=== PATIENT | male | born 1955 | race Two or more races ===

== ENCOUNTER 2016-07-08 06:09 | Observation (INO) | payer MEDICAID ==
[2016-07-08] MEDS ORDERED: BACITRACIN IRRIGATION/NS 50,000 UNITS/1,000 ML BTL IRR ONE (06:10)
[2016-07-08] MEDS ORDERED: NS 1,000 ML IV ONE (06:10)
[2016-07-08] MEDS ORDERED: DIAZEPAM 5 MG TAB PO ONE (06:10)
[2016-07-08] MEDS ORDERED: ceFAZolin 2 GM/DEXTROSE 100 ML IV ONE (06:10)
[2016-07-08] MEDS ORDERED: diphenhydrAMINE 25 MG CAP PO ONE ×2 (06:10→11:50)
--- NOTE | 2016-07-08 06:35 | CPEKG ---
Heart Rate: 39 RR Interval: 1538 P-R Interval: 304 QRSD Interval: 94 QT Interval: 620 QTC Interval: 500 P [place]: 50 QRS [place]: -14 T Wave [place]: 43 EKG Severity - ABNORMAL ECG - EKG Impression: SINUS BRADYCARDIA EKG Impression: FIRST DEGREE AV BLOCK EKG Impression: PROBABLE LEFT ATRIAL ABNORMALITY EKG Impression: BORDERLINE PROLONGED QT INTERVAL Electronically Signed By: Bartolo Champion 08-Jul-2016 14:30:59
[2016-07-08 06:58] LABS: % IMMATURE GRANULYOCYTES 0.2 % (0.0-1.1); ABSOLUTE IMMATURE GRANULOCYTES 0.02 10^3/uL (0.00-0.10); ADD DIFF? NO; ADD MORPH? NO; ADD SCAN? NO; ATYPICAL LYMPHOCYTE FLAG 10 (0-99); FRAGMENT RBC FLAG 0 (0-99); HEMATOCRIT 46.8 % (40.0-51.0); HEMOGLOBIN 15.8 g/dL (13.7-17.5); LEFT SHIFT FLG 0 (0-99); LIPEMIA HEMOLYSIS FLAG 90 (0-99); MEAN CELL HEMOGLOBIN CONCENTR. 33.8 g/dL (32.4-36.7); MEAN PLATELET VOLUME 11.3 fL (8.7-11.7); PLATELET CLUMPS FLAG 0 (0-99); PLATELET COUNT 237 10^3/uL (150-400); RED BLOOD CELL COUNT 5.44 10^6/uL (4.40-6.38); RED CELL DISTRIBUTION WIDTH 13.6 % (11.5-15.2)
[2016-07-08 07:07] LABS: INR 1.09 (0.83-1.16)
[2016-07-08 07:25] LABS: ANION GAP 15 mEq/L (8-16); CALCIUM 9.6 mg/dL (8.5-10.4); CARBON DIOXIDE 23 mEq/l (22-31); CHLORIDE 105 mEq/L (97-110); GLOMERULAR FILTRATION RATE > 60; GLUCOSE 111 mg/dL (70-100); POTASSIUM 3.5 mEq/L (3.5-5.2); SODIUM 143 mEq/L (134-144)
[2016-07-08] MEDS ORDERED: fentaNYL 100 MCG/2 ML INJ ONE ×2 (07:25→07:45)
[2016-07-08] MEDS ORDERED: LIDOCAINE 1% 30 ML SDV ONE (07:25)
[2016-07-08] MEDS ORDERED: MIDAZOLAM 2 MG/2 ML VIAL ONE ×3 (07:26→07:45)
[2016-07-08] MEDS ORDERED: LIDO/EPI 1% **for epidural** 30 ML SDV ONE (07:26)
[2016-07-08] MEDS ORDERED: BUPIVACAINE 0.5% 30 ML SDV ONE (07:26)
[2016-07-08] MEDS ORDERED: IOPAMIDOL (ISOVUE 370) 100 ML BTL IV ONE (07:26)
[2016-07-08] MEDS ORDERED: CLOPIDOGREL BISULFATE 75 MG TAB PO ONE (07:30)
[2016-07-08] MEDS ORDERED: LISINOPRIL 40 MG TAB PO ONE (07:30)
[2016-07-08] MEDS ORDERED: hydrALAZINE 20 MG/ML VIAL ONE (07:41)
--- NOTE | 2016-07-08 09:07 | CPEKG ---
Heart Rate: 70 RR Interval: 857 P-R Interval: 204 QRSD Interval: 154 QT Interval: 512 QTC Interval: 553 P [place]: 61 QRS [place]: -75 T Wave [place]: 91 EKG Severity - ABNORMAL ECG - EKG Impression: SINUS RHYTHM EKG Impression: PROBABLE LEFT ATRIAL ABNORMALITY EKG Impression: LBBB - NEW IN COMPARISON TO PRIOR ECG EKG Impression: LVH WITH SECONDARY REPOLARIZATION ABNORMALITY EKG Impression: INFERIOR INFARCT, ACUTE EKG Impression: ANTEROLATERAL INFARCT, RECENT Electronically Signed By: Bartolo Champion 08-Jul-2016 14:31:22
--- NOTE | 2016-07-08 09:36 | EPPROC ---
Electrophysiology Procedure Note: PROCEDURE PERFORMED: * Implantation of an A/V Pacemaker * Fluoroscopy INDICATION: This is a 60 yr old male with symptomatic heart block. In view of this it was decided to implant a dual chamber pacemaker PROCEDURE NOTE: Patient presented to the cardiac catheterization laboratory in a fasting, post absorptive state. Cardiac laborer beam house nurse administered moderate sedation. The left infraclavicular area was prepped and draped in the usual sterile fashion. Lidocaine plus bupivacaine was used for local anesthesia. Left subclavian venography was performed by injection of iodinated contrast into the left antecubital vein. This was done to assure patency of the vein and also to assess for any anatomical aberrations. Using a combination of blunt and sharp dissection and electrocautery, the dissection was carried down to the prepectoral fascia. All bleeding was controlled with electrocautery. Fluoroscopy was utilized during the entire procedure for venous access and placement of the leads. Using the usual technique, left celphalic vein was accessed and a glidewire was placed. Through this initially a 9F and later a 7F sheath was passed. Placement of the guidewires into the venous system was confirmed by low- pressure blood return and also by visualizing the guidewires advancing into the inferior vena cava. A purse string suture was applied around the guidewires. An active fixation ventricular lead was advanced into the right ventricular apex and screwed in place. An active fixation atrial lead was advanced into the right atrial appendage and screwed in place. The peel away sheaths were removed. Pacing thresholds, sensing parameters and lead impedances were measured. There was no diaphragmatic stimulation at maximum output. The leads were sutured to the prepectoral fascia with 3 nonabsorbable sutures each. The pocket was created and it was flushed using antibiotic solution. It was inspected for any bleeding. The leads were attached to the pacemaker securely. The pacemaker was inserted into the pocket and secured in place with a nonabsorbable suture. Fluoroscopy was performed in [place] and [place] planes to verify right-sided placement of the leads. Also fluoroscopy of the pacemaker pocket was performed. The pacemaker pocket was closed in 3 layers with absorbable vicryl sutures. Steristrips were placed. Appropriate dressing was applied. The patient left the cardiac catheterization laboratory in stable condition. Serial Numbers: * Device: St Will Assurity SN [id number] * Atrial Lead: [facility] Will Tendril SN [id number] * Ventricular Lead: St Will Tendril SN [id number] Stimulation Thresholds & Impedance Measurements: * Atrial Lead 1.5mV, 1.7@0.5ms, 449Ohms * Ventricular Lead 7.9mV, 0.9@0.5ms, 576Ohms Aníbal Pacing Parameters * Pacing mode: DDD * Lower rate: 60 * Upper tracking rate: 120 * Upper sensor rate: 120
[2016-07-08] MEDS ORDERED: NON-FORMULARY NEW DRUG (Diclofenac Sodium [Voltaren Gel (*)] 1 APP) TP PRN (11:38)
[2016-07-08] MEDS ORDERED: ALBUTEROL 60 PUFFS/8 GM MDI IH PRN (11:38)
[2016-07-08] MEDS ORDERED: HYDROCODONE/APAP 5/325 TAB PO PRN (11:40)
[2016-07-08] MEDS ORDERED: NITROGLYCERIN 0.4 MG BTL SL PRN (17:10)
[2016-07-08] MEDS: NITROGLYCERIN 0.4 MG BTL SL SCH ×2 (19:36→19:54)
[2016-07-08] MEDS ORDERED: NON-FORMULARY NEW DRUG (Ranitidine Hcl [Ranitidine Hcl] 150 MG) PO SCH (21:00)
[2016-07-08] MEDS ORDERED: LISINOPRIL 40 MG TAB PO SCH (21:00)
[2016-07-08] MEDS ORDERED: NON-FORMULARY NEW DRUG (Quinapril Hcl [Accupril 40 Mg] 40 MG) PO SCH (21:00)
[2016-07-08] MEDS: FAMOTIDINE 20 MG TAB PO SCH (21:02)
[2016-07-09 04:40] LABS: % IMMATURE GRANULYOCYTES 0.3 % (0.0-1.1); ABSOLUTE IMMATURE GRANULOCYTES 0.02 10^3/uL (0.00-0.10); ADD DIFF? NO; ADD MORPH? NO; ADD SCAN? NO; ATYPICAL LYMPHOCYTE FLAG 0 (0-99); FRAGMENT RBC FLAG 20 (0-99); HEMATOCRIT 40.8 % (40.0-51.0); HEMOGLOBIN 13.8 g/dL (13.7-17.5); LEFT SHIFT FLG 0 (0-99); LIPEMIA HEMOLYSIS FLAG 90 (0-99); MEAN CELL HEMOGLOBIN 29.4 pg (27.9-34.1); MEAN CELL HEMOGLOBIN CONCENTR. 33.8 g/dL (32.4-36.7); PLATELET CLUMPS FLAG 10 (0-99); PLATELET COUNT 217 10^3/uL (150-400); RED BLOOD CELL COUNT 4.69 10^6/uL (4.40-6.38); RED CELL DISTRIBUTION WIDTH 13.7 % (11.5-15.2)
[2016-07-09 04:49] LABS: ANION GAP 9 mEq/L (8-16); CALCIUM 8.8 mg/dL (8.5-10.4); CARBON DIOXIDE 25 mEq/l (22-31); CHLORIDE 107 mEq/L (97-110); CREATININE 1.1 mg/dL (0.7-1.3); GLOMERULAR FILTRATION RATE > 60; GLUCOSE 123 mg/dL (70-100); POTASSIUM 3.8 mEq/L (3.5-5.2); SODIUM 141 mEq/L (134-144)
[2016-07-09] MEDS: FAMOTIDINE 20 MG TAB PO SCH (07:47)
[2016-07-09] MEDS ORDERED: NON-FORMULARY NEW DRUG (Atorvastatin Calcium [Lipitor 80 Mg] 80 MG) PO SCH (09:00)
[2016-07-09] MEDS ORDERED: ATORVASTATIN CALCIUM 40 MG TAB PO SCH (09:00)
[2016-07-09] MEDS ORDERED: ASPIRIN 325 MG PO SCH (09:00)
[2016-07-09] MEDS ORDERED: CLOPIDOGREL BISULFATE 75 MG TAB PO SCH (09:00)
[2016-07-09] MEDS ORDERED: HYDROCHLOROTHIAZIDE 12.5 MG CAP PO SCH (09:00)
[2016-07-09] MEDS ORDERED: ASPIRIN EC 325 MG TAB PO SCH (09:00)
[2016-07-09 09:16] VITALS: BP 178/97; PULSE 67; RESP 18; TEMP 97.7; O2SAT 93
--- NOTE | 2016-07-09 10:34 | GDS ---
[f rep st] DISCHARGE SUMMARY DISCHARGE DIAGNOSES: 1. Complete heart block status post dual-chamber [employer] Will pacemaker. 2. History of anterior ST elevated myocardial infarction status post stenting to the left anterior descending artery, in November 2014. 3. Hyperlipidemia. 4. Hypertension. HOSPITAL COURSE: For detailed H and P, please see prior dictation. Briefly, the patient is a 60-year-old male,who presented to our office complaining of dizziness and conduction disease, seen on his EKG. He wore a Holter monitor and was found to have complete heart block. Ultimately, the decision was made to proceed with dual-chamber pacemaker which was done by Dr. Ruffin, on 2016. He had a dual-chamber [facility] Will device placed. Following the procedure, he developed a hematoma and pressure was held. A pressure dressing was then placed throughout the night. The following morning, the pressure dressing was removed and he did have evidence of a small hematoma, but this was soft and not reaccumulating. He does have a tenderness around the site, especially with palpation. The chest x-ray the day of discharge was negative for pneumothorax. He was monitored on telemetry and was paced. His pacer interrogation was performed as well and showed that his device was working properly. PHYSICAL EXAMINATION: VITAL SIGNS: Blood pressure 178/97 prior to his morning medications, heart rate 67, oxygen saturation of 93% on room air, afebrile. LUNGS: Mild rhonchi at the bilateral bases without any crackles auscultated. CARDIAC: Regular rate and rhythm without any significant murmurs, rubs, or gallops appreciated. CHEST WALL: His pacer site is clean and intact without any evidence of infection. He did have a hematoma but it is currently soft, with ecchymosis toward the bottom of the device. DISCHARGE MEDICATIONS: His medications are essentially unchanged except for he has been given a prescription for [place] 5/325 mg 2 tabs p.o. q.4 hours p.r.n. for pain. The remainder of his medications have stayed the same. He will continue albuterol p.r.n., amlodipine 10 mg daily, aspirin 325 mg daily, Lipitor 80 mg daily, clonidine 0.2 mg twice daily, Plavix 75 mg daily, Voltaren gel p.r.n., hydrochlorothiazide 12.5 mg daily, morphine IR 15 mg twice daily p.r.n., nitroglycerin p.r.n. for chest pain, Accupril 40 mg daily, ranitidine 150 mg twice daily. PLAN: The patient is currently stable and ready for discharge home. He has been given pacer precautions. He has also been given a note for work saying he can return, but is unable to lift more than 15 pounds. He will follow up with Dr. Man Torres on 07/14 at 9:30, as scheduled. Greater than 30 minutes was spent coordinating the patients care today. /[id number]/MODL MTDD
== END 2016-07-09 12:42 | disposition home or self-care (01) ==
LOC: FCATH 06:09 → F2W 08:34
PROVIDERS: ADMIT Internal Medicine Cardiovascular Disease; ATTEND Internal Medicine Cardiovascular Disease
PROC: 0JH606Z Insertion of Pacemaker, Dual Chamber into Chest Subcutaneous Tissue and Fascia, Open Approach (ICD-10-PCS; principal; 2016-07-08)
PROC: 02H63JZ Insertion of Pacemaker Lead into Right Atrium, Percutaneous Approach (ICD-10-PCS; principal; 2016-07-08)
PROC: 02HK3JZ Insertion of Pacemaker Lead into Right Ventricle, Percutaneous Approach (ICD-10-PCS; principal; 2016-07-08)
DX: I44.2 Atrioventricular block, complete (principal); R42 Dizziness and giddiness; L76.32 Postprocedural hematoma of skin and subcutaneous tissue following other procedure; I25.10 Atherosclerotic heart disease of native coronary artery without angina pectoris; I25.2 Old myocardial infarction; Z95.5 Presence of coronary angioplasty implant and graft; E78.5 Hyperlipidemia, unspecified; I10 Essential (primary) hypertension
CPT/HCPCS: 33208; 71020; 93005; C1769; G0378; C1785; C1898; J0360; J0690; J2250; J3010; Q9967

== ENCOUNTER 2016-08-15 06:33 | Emergency (ER) | payer MEDICAID ==
[2016-08-15 06:37] VITALS: RESP 18
--- NOTE | 2016-08-15 06:41 | EDPHY ---
H & P Time Seen by Provider: 08/15/16 06:41 HPI/ROS: CHIEF COMPLAINT: I can't breathe right HISTORY OF PRESENT ILLNESS: This 60-year-old man presents with chief complaint of having trouble catching his breath which she says has been present ever since his pacemaker was placed last month. Says it was worse this morning for 45 minutes some presents for evaluation. Not positional and not exertional. Associated with sweating earlier but no nausea vomiting or chest pain. He said he had "cramping in the heart" associated with his myocardial infarction but did not have any today. REVIEW OF SYSTEMS: Eye: no change in vision ENT: no sore throat Cardiac: HPI Pulmonary: HPI, no cough or hemoptysis. Abdomen: no vomiting, diarrhea, abdominal pain Musculoskeletal: no back pain or leg swelling Skin: no rash Neuro: no headache Constitutional: no fever : no urinary symptoms A comprehensive 10 point review of systems is otherwise negative aside from elements mentioned in the history of present illness. PAST MEDICAL HISTORY: Includes hyperlipidemia and hypertension. ST elevation OR with LAD stenting in November 2014. Discharge summary dated 07/08/2016 reviewed with [place] pacer placed for complete heart block. Diagnostic cardiac catheterization dated 04/06/2016 shows patent LAD stent without significant disease in the other vessels. Ankylosing spondylitis. Social history: Tobacco smoker, no recent prolonged travel or immobilization. General Appearance: Alert and conversant, cooperative. Eyes: No scleral icterus. ENT, Mouth: Normal mucous membranes. Respiratory: Normal respiratory effort, breath sounds equal, lungs are clear to auscultation. Cardiovascular: Regular rate and rhythm. Gastrointestinal: Abdomen is soft and non tender. Neurological: Alert and oriented x3. Normally conversant. Face symmetric, normal movement and sensation in all extremities. Skin: Warm and dry, no rashes. Musculoskeletal: No peripheral edema and no joint swelling. No calf tenderness Psychiatric: Appears mildly to moderately anxious otherwise negative. Emergency Department course/MDM: Patient's oxygen saturation noted 99-100%. Electrocardiogram is paced. Plan for chest x-ray, troponin, D-dimer, and will plan to discuss with his shirt sorter. 718: Low pretest probability for pulmonary embolism, D-dimer resulted at less than 0.5. At 734 hr is 80. 800: Troponin negative, I feel the although we do not have a definite source for the patient's dyspnea, it is likely that this is not from a cardiac or pulmonary or metabolic source at this time. Anxiety more likely than other causes. Negative troponin, he does not today have the symptoms which were present with his OR in 2014. 813: Discussed in detail with Messi, discharge with office followup. 820: Results and follow-up plan as outpatient discussed in detail with the patient and questions answered Smoking Status: Former smoker Constitutional: Initial Vital Signs Temperature (C) 36.6 C 08/15/16 06:34 Heart Rate 112 H 08/15/16 06:34 Respiratory Rate 18 08/15/16 06:34 Blood Pressure 147/90 H 08/15/16 06:34 O2 Sat (%) 98 08/15/16 06:34 O2 Delivery Mode Room Air Allergies/Adverse Reactions: No Known Allergies Allergy (Unverified 08/15/16 06:34) Home Medications: Medication Instructions Recorded Albuterol [Proventil Inhaler HFA 2 puffs IH Q4 PRN 04/06/16 (*)] Aspirin EC 325 mg (*) 325 mg PO DAILY 04/06/16 Atorvastatin Calcium [Lipitor 80 80 mg PO DAILY 04/06/16 mg] Clopidogrel Bisulfate [Plavix (*)] 75 mg PO DAILY 04/06/16 Hydrochlorothiazide [HCTZ (*)] 12.5 mg PO DAILY 04/06/16 Nitroglycerin [Nitrostat 0.4 mg 0.4 mg SL Q5M 04/06/16 (*)] Quinapril HCl [Accupril 40 MG] 40 mg PO HS 04/06/16 amLODIPine BESYLATE [Norvasc 10 mg 10 mg PO DAILY 04/06/16 (*)] clonIDINE [Catapres (*)] 0.2 mg PO BID 04/06/16 Diclofenac Sodium [Voltaren Gel 1 omar TP BID PRN 07/08/16 (*)] Ranitidine HCl 150 mg PO BID 07/08/16 morphINE IR [morphINE IR 15 mg (*)] 15 mg PO BID PRN 07/08/16 Hydrocodone/APAP 5/325 [[place] 1 - 2 tab PO Q4H PRN #14 tab 07/09/16 5/325 (*)] Medical Decision Making - Diagnostics EKG Interpretation: 12-lead EKG interpreted by me; official reading is in trace master. My interpretation is ventricular pacing, rate 94. Imaging Results: Imaging Impressions Chest X-Ray 08/15/16 06:50 Impression: No source for dyspnea identified. 2. Stable pacemaker. 3. Ankylosing spondylitis. Chest x-ray viewed by myself shows pacemaker otherwise negative for acute, no reason for shortness of breath. Imaging: I viewed and interpreted images myself Differential Diagnosis: Differential diagnosis considered for shortness of breath including but not limited to pulmonary infectious process, COPD, asthma, pulmonary embolus and congestive heart failure. Consult/Admit Bed Type: [place] for Man Torres at 813 - Data Points Laboratory Results: Laboratory Results 08/15/16 06:50 08/15/16 06:50 08/15/16 08/15/16 08/15/16 06:50 06:50 06:50 WBC 9.30 10^3/uL 10^3/uL (3.80-9.50) RBC 5.03 10^6/uL 10^6/uL (4.40-6.38) Hgb 14.4 g/dL g/dL (13.7-17.5) Hct 42.6 % % (40.0-51.0) MCV 84.7 fL fL (81.5-99.8) MCH 28.6 pg pg (27.9-34.1) MCHC 33.8 g/dL g/dL (32.4-36.7) RDW 13.6 % % (11.5-15.2) Plt Count 248 10^3/uL 10^3/uL (150-400) MPV 9.7 fL fL (8.7-11.7) Neut % (Auto) 52.3 % % (39.3-74.2) Lymph % (Auto) 35.2 % % (15.0-45.0) Wood % (Auto) 9.9 % % (4.5-13.0) Eos % (Auto) 2.0 % % (0.6-7.6) Baso % (Auto) 0.2 % L % (0.3-1.7) Nucleat RBC Rel Count 0.0 % % (0.0-0.2) Absolute Neuts (auto) 4.86 10^3/uL 10^3/uL (1.70-6.50) Absolute Lymphs (auto) 3.27 10^3/uL H 10^3/uL (1.00-3.00) Absolute Monos (auto) 0.92 10^3/uL H 10^3/uL (0.30-0.80) Absolute Eos (auto) 0.19 10^3/uL 10^3/uL (0.03-0.40) Absolute Basos (auto) 0.02 10^3/uL 10^3/uL (0.02-0.10) Absolute Nucleated RBC 0.00 10^3/uL 10^3/uL (0-0.01) Immature Gran % 0.4 % % (0.0-1.1) Immature Gran # 0.04 10^3/uL 10^3/uL (0.00-0.10) D-Dimer 0.49 ug/mLFEU ug/mLFEU (0.00-0.50) Sodium 139 mEq/L mEq/L (134-144) Potassium 3.1 mEq/L L mEq/L (3.5-5.2) Chloride 103 mEq/L mEq/L (97-110) Carbon Dioxide 25 mEq/l mEq/l (22-31) Anion Gap 11 mEq/L mEq/L (8-16) BUN 20 mg/dL mg/dL (7-23) Creatinine 0.8 mg/dL mg/dL (0.7-1.3) Estimated GFR > 60 Glucose 121 mg/dL H mg/dL (70-100) Calcium 9.1 mg/dL mg/dL (8.5-10.4) Troponin I < 0.012 ng/mL ng/mL (0-0.034) Departure - Departure Disposition: Home, Routine, Self-Care Clinical Impression: Dyspnea Qualifiers: Dyspnea type: unspecified Qualified Code(s): R06.00 - Dyspnea, unspecified Condition: Good Instructions: Dyspnea (ED) Referrals: ISABEL OLVERA [Other] - As per Instructions Yusuf Torres MD [Medical Doctor] - As per Instructions
--- NOTE | 2016-08-15 06:43 | CPEKG ---
Heart Rate: 94 RR Interval: 638 P-R Interval: 188 QRSD Interval: 160 QT Interval: 424 QTC Interval: 531 P [place]: 71 QRS [place]: -77 T Wave [place]: 90 EKG Severity - ABNORMAL ECG - EKG Impression: VENTRICULAR-PACED COMPLEXES EKG Impression: NONSPECIFIC IVCD WITH LAD EKG Impression: LVH WITH SECONDARY REPOLARIZATION ABNORMALITY Electronically Signed By: Marty Nguyen 15-Aug-2016 06:54:34
[2016-08-15 07:08] LABS: % IMMATURE GRANULYOCYTES 0.4 % (0.0-1.1); ABSOLUTE IMMATURE GRANULOCYTES 0.04 10^3/uL (0.00-0.10); ADD DIFF? NO; ADD MORPH? NO; ADD SCAN? NO; ATYPICAL LYMPHOCYTE FLAG 20 (0-99); FRAGMENT RBC FLAG 0 (0-99); HEMATOCRIT 42.6 % (40.0-51.0); HEMOGLOBIN 14.4 g/dL (13.7-17.5); LEFT SHIFT FLG 0 (0-99); LIPEMIA HEMOLYSIS FLAG 90 (0-99); MEAN CELL HEMOGLOBIN 28.6 pg (27.9-34.1); MEAN CELL HEMOGLOBIN CONCENTR. 33.8 g/dL (32.4-36.7); MEAN CELL VOLUME 84.7 fL (81.5-99.8); MEAN PLATELET VOLUME 9.7 fL (8.7-11.7); PLATELET CLUMPS FLAG 10 (0-99); PLATELET COUNT 248 10^3/uL (150-400); RED BLOOD CELL COUNT 5.03 10^6/uL (4.40-6.38); RED CELL DISTRIBUTION WIDTH 13.6 % (11.5-15.2)
[2016-08-15 07:29] LABS: ANION GAP 11 mEq/L (8-16); CALCIUM 9.1 mg/dL (8.5-10.4); CARBON DIOXIDE 25 mEq/l (22-31); CHLORIDE 103 mEq/L (97-110); CREATININE 0.8 mg/dL (0.7-1.3); GLOMERULAR FILTRATION RATE > 60; GLUCOSE 121 mg/dL (70-100); POTASSIUM 3.1 mEq/L (3.5-5.2); SODIUM 139 mEq/L (134-144)
[2016-08-15 07:40] LABS: TROPONIN I < 0.012 ng/mL (0-0.034)
[2016-08-15 08:40] VITALS: BP 128/65; PULSE 69; TEMP 98.2; O2SAT 96
== END 2016-08-15 08:37 | disposition home or self-care (01) ==
DX: R06.00 Dyspnea, unspecified (principal); I25.2 Old myocardial infarction; I10 Essential (primary) hypertension; Z79.82 Long term (current) use of aspirin; Z87.891 Personal history of nicotine dependence; Z95.0 Presence of cardiac pacemaker; Z95.5 Presence of coronary angioplasty implant and graft